=== PATIENT | male | born 1955 | race Two or more races ===

== ENCOUNTER → 2024-01-11 09:59 | Outpatient (BNVA) | payer MEDICARE, BC, SELFPAY | PROVIDERS: Visit Provider Family Medicine Adult Medicine | DX: I10 Essential (primary) hypertension (principal); E11.42 Type 2 diabetes mellitus with diabetic polyneuropathy; Z79.4 Long term (current) use of insulin; E11.69 Type 2 diabetes mellitus with other specified complication; N40.1 Benign prostatic hyperplasia with lower urinary tract symptoms; N52.1 Erectile dysfunction due to diseases classified elsewhere | CPT/HCPCS: 80053; 83036; 85025; G0103 ==

== ENCOUNTER → 2025-01-29 10:08 | Outpatient (BNVA) | payer MEDICARE, BC, SELFPAY | PROVIDERS: PCP Family Medicine; Visit Provider Family Medicine | DX: I10 Essential (primary) hypertension (principal); E11.42 Type 2 diabetes mellitus with diabetic polyneuropathy; E78.5 Hyperlipidemia, unspecified; N40.1 Benign prostatic hyperplasia with lower urinary tract symptoms; N13.8 Other obstructive and reflux uropathy; Z79.4 Long term (current) use of insulin | CPT/HCPCS: 80053; 80061; 82043; 83036; 84439; 84443; 85025 ==

== ENCOUNTER → 2025-03-19 13:38 | Outpatient (BNVA) | payer MEDICARE, BC, SELFPAY | PROVIDERS: PCP Family Medicine; Visit Provider Emergency Medicine | DX: M25.511 Pain in right shoulder (principal) | CPT/HCPCS: 73030 ==

== ENCOUNTER → 2025-05-03 11:24 | Outpatient (BNVA) | payer BC, MEDICARE, SELFPAY | PROVIDERS: PCP Family Medicine; Visit Provider Family Medicine | DX: E11.42 Type 2 diabetes mellitus with diabetic polyneuropathy (principal); Z79.4 Long term (current) use of insulin; Z12.5 Encounter for screening for malignant neoplasm of prostate; R30.0 Dysuria; N34.3 Urethral syndrome, unspecified | CPT/HCPCS: 83036; 87086; 87491; 87591; G0103 ==

== ENCOUNTER 2025-07-18 09:13 | Outpatient (CLI) | payer MEDICARE, BC, SELFPAY ==
--- NOTE | 2025-07-18 09:45 | USCV_ITS ---
William Costa Age: 70 Gender: M : 1955 Exam Date: 07/18/2025 09:55 Ordering Phys: Nivia Wade MD Technologist: PD [place] [facility] [place]. past smoker HISTORY: Diameter (cm) AP x Transverse x Length Velocity (cm/s) Waveform Prox Aorta: 2.10 x 2.30 x 107.60 Mid Aorta: 1.80 x 1.50 x 95.80 Distal Aorta: 2.00 x 1.40 x 66.20 Right Iliac Prox: 1.23 x 1.37 x 89.90 Left Iliac Prox: 1.02 x 1.05 x 101.90 Stent Prox Landing x x Aneurysmal Sac Max x x Lt Lat Sac Dim Rt Lat Sac Dim Stent Dist Landing x x Right Iliac Stent x x Left Iliac Stent x x Right Renal Art Left Renal Art FINDINGS: no obvious abnormalities CONCLUSIONS No evidence of abdominal aortic or bilateral iliac aneurysm. Moderate atheromatous disease Antonio Daigle MD (Electronically Signed) Final Date: 18 July 2025 11:58 S
== END 2025-07-18 09:14 | disposition home or self-care (01) ==
LOC: RAD 09:15
PROVIDERS: PCP Family Medicine; Visit Provider Family Medicine
DX: Z13.6 Encounter for screening for cardiovascular disorders (principal)
CPT/HCPCS: 76706

== ENCOUNTER 2025-07-24 09:32 | Outpatient (RCR) | payer MEDICARE, BC, SELFPAY | END 2025-08-23 23:59 | disposition home or self-care (01) | LOC: SPT 09:32 | PROVIDERS: PCP Family Medicine; Visit Provider Family Medicine | DX: R29.898 Other symptoms and signs involving the musculoskeletal system (principal); G14 Postpolio syndrome | CPT/HCPCS: 97110; 97162; 97530; G0283 ==

== ENCOUNTER 2025-08-24 06:30 | Outpatient (RCR) | payer MEDICARE, BC, SELFPAY | END 2025-09-03 12:52 | disposition home or self-care (01) | LOC: SPT 06:30 | PROVIDERS: PCP Family Medicine; Visit Provider Family Medicine | DX: G14 Postpolio syndrome (principal); R29.898 Other symptoms and signs involving the musculoskeletal system | CPT/HCPCS: 97110; G0283 ==